=== PATIENT | female | born 1995 | race Caucasian/White ===

== ENCOUNTER 2016-11-02 15:44 | Emergency (ER) | payer MEDICAID ==
[2016-11-02 15:57] VITALS: BP 125/90; PULSE 104; RESP 16; TEMP 98.8; O2SAT 96
--- NOTE | 2016-11-02 16:09 | EDPHY ---
H & P Time Seen by Provider: 11/02/16 15:49 HPI/ROS: CHIEF COMPLAINT: Wound recheck post cholecystectomy HISTORY OF PRESENT ILLNESS: 21-year-old female postop day 10 post laparoscopic cholecystectomy by Dr. Santi Sun at [facility] in [place] in the ER for wound check. Because of her schedule at [facility] she is unable to have a recheck at 1 week, is scheduled to have a recheck this upcoming Thursday (today is Thursday) became to the ER because her Steri-Strips have fallen off. She states that she is feeling well. Denies: Fever, chills, nausea, vomiting, abdominal pain, bowel movement abnormality. PHYSICAL EXAM (Prior to examination, patient consented to physical exam, hands were washed and my usual and customary physical exam procedures followed) 1) GENERAL: Well-developed, well-nourished, alert and oriented. Appears to be in no acute distress. 2) HEAD: Normocephalic 3) HEENT: sclera anicteric 4) LUNGS: Breathing comfortably. 5) SKIN: the 3 midline laparoscopy scars are granulating appropriately with no signs of infection, no erythema, no fetid odor, no drainage, no dehiscence. [6) ABDOMEN: The abdomen is nontender, soft, no guarding, no rebound. Smoking Status: Never smoked Constitutional: Initial Vital Signs Temperature (C) 37.1 C 11/02/16 15:55 Heart Rate 104 H 11/02/16 15:55 Respiratory Rate 16 11/02/16 15:55 Blood Pressure 125/90 H 11/02/16 15:55 O2 Sat (%) 96 11/02/16 15:55 O2 Delivery Mode Room Air Allergies/Adverse Reactions: gluten Allergy (Verified 07/01/16 00:47) povidone-iodine [From Betadine] Allergy (Verified 11/02/16 15:55) soap [From Betadine] Allergy (Verified 11/02/16 15:55) Home Medications: Medication Instructions Recorded Insulin 06/11/13 Levothyroxine 06/11/13 Cephalexin [Keflex] 500 mg PO QID 5 Days 06/12/15 Metformin HCl 06/12/15 Sulfamethox/Tmp 800/160 mg 1 tab PO BID #10 tab 06/12/15 [Bactrim Ds] VYVANSE 06/12/15 Ondansetron Odt [Zofran Odt] 4 mg PO Q4PRN PRN #20 tab 11/26/15 Cephalexin [Keflex (*)] 500 mg PO Q6 5 Days 07/01/16 Ondansetron Odt [Zofran Odt 4 mg 4 mg PO Q4PRN PRN #10 tab 07/01/16 (*)] MDM/Departure - [facility] ED Course/Re-evaluation: 4:08 p.m.: Patient is postop day 10. She has an upcoming appoint with her surgeon in [place], [place] in 5 days. Recommend she keep this appointment. At this time her wounds appear to be healing well with no signs of infection, no dehiscence, her abdomen is soft no guarding or rebound. Her wounds have been re-dressed. Recommend she keep her appointment. Usual and customary wound and abdominal precautions provided. - Depart Disposition: Home, Routine, Self-Care Clinical Impression: Visit for wound check Condition: Good Instructions: Wound Healing and Your Diet (ED) Additional Instructions: Return to the ER if you develop fever, chills, diarrhea nausea, vomiting, or any other symptoms that concern you. Referrals: Keep, your appointment with your surgeon this Thursday [Other] - As per Instructions
== END 2016-11-02 16:34 | disposition home or self-care (01) ==
DX: Z48.01 Encounter for change or removal of surgical wound dressing (principal)